=== PATIENT | male | born 1955 | race Caucasian/White ===

== ENCOUNTER 2022-02-09 16:12 | Emergency (ER) | payer OTHER, SELFPAY ==
[2022-02-09 16:27] VITALS: BP 156/69; PULSE 58; RESP 18; TEMP 36.5; O2SAT 99
--- NOTE | 2022-02-09 16:45 | DI.CT_ITS ---
Exam(s) CT CHEST WO EXAM: CT CHEST WO CLINICAL HISTORY: fall, left sided chest pain. TECHNIQUE: Multi planar reconstructions were performed. CONTRAST MATERIAL: None COMPARISON: No exams were available for comparison FINDINGS: CHEST: LUNGS: Hyperinflation. No large bullae. No pneumothorax. Mild increased markings in both lung base s specifically in the posterior basal segments of both lower lobes. There are no associated pleural effusions. MEDIASTINUM: There is no obvious hilar nor mediastinal adenopathy. Visualized thyroid unremarkable.Es ophagus is dilated and thickened distally in this patient appears to have had prior gastric surgery. Endoscopy recommended. CARDIAC: Heart size is normal. There is no pericardial effusion.Ascending thoracic aorta is dilated measuring 4.5 cm. Diameter of the mid aortic arch is 3 cm and the descending thoracic aorta is upper normal diameter. VISUALIZED UPPER ABDOMEN:Cysts in both kidneys. Fat containing left adrenal mass, probably myelolipo ma. This measures 1.5 x 1.5 cm. There is cysts noted in both kidneys, only partially included in th e field of view. OSSEOUS: No fractures. No ominous osseous lesions.Benign-appearing T12 vertebral body hemangioma is noted.. IMPRESSION: 1. No acute pulmonary findings. No pleural effusions. 2. Aneurysmal dilatation of the ascending thoracic aorta. If clinically indicated this could be furt her study with contrast infused CT. 3. Evidence of previous gastric region surgery. Abnormal thickening of the distal esophagus. Recomm end endoscopy. Fat containing 15 x 15 millimeter left adrenal nodule which is probably a benign myelolipoma. There are benign cysts noted in both kidneys. RADIATION DOSE DELIVERED: 581.18mGy.cm Total DLP DATA REPOSITORY: All CT scans at this facility are submitted to the National Radiology Data Registry (NRDR) Dose Index Registry (DIR) with the [employer] ([employer]). RADIATION OPTIMIZATION: All CT scans at this facility use at least one of these dose optimization te chniques: automated exposure control; mA and/or kV adjustment per patient size (includes targeted exa ms where dose is matched to clinical indication); or iterative reconstruction.
--- NOTE | 2022-02-09 16:47 | ED.GENADUL_ITS ---
Discharge Plan Disposition Patient Disposition: HOME Condition: Stable Discharge Details Clinical Impression: Rib contusion Primary Care Provider: Pina Cooper ED Provider: Sandeep Baldwin Home Meds and New Rx's Prescriptions: New gabapentin 300 mg capsule 300 mg PO TID Qty: 30 0RF Discharge Instructions Instructions: Rib Contusion (ED) Additional Instructions: your cat scan did not show any broken bones or collapsed lung follow up with your primary care provider within 1 week if you feel more ill, have new symptoms such as fevers or new pain such as severe abdominal pain return to the emergency department Medical Decision Making 66 yo male with hx of migraines on chronic oxycodone and chronic smoker, comes in with cc of left sided chest/rib pain. He states he was in a brook 2 days ago slipped and landed on his left anterior chest on a rock. Denies loc. He has had pain since so came here. He appears in pain on exam and is holding his left side of his chest. He has no visible or palpable deformities. He has clear lungs, tenderness in the mid clavicular line over 3-7 ribs, no sternal tenderness, no abdomen tenderness, no midline c or l spine tenderness and no signs of trauma to the head. Suspect rib fracture, given degree of pain he is in will obtain ct to evaluate for fractures and ptx. Given lack of pain and tenderness elsewhere do not feel additional imaging indicated at this time pt still with point tenderness over the previously described area, remains stable. He has no acute traumatic findings on ct, does have nonemergent findings that were discussed with him and advised to f/u with pcp for this. Given no rib fracture or ptx do not feel he requires admission, will try gapaentin as he is already on oxycodone. Return precautions given Differential Diagnosis Differential Diagnosis: fracture, contusion, ptx Imaging Data Radiologic Study: Attestation: I personally reviewed and interpreted this imaging study as follows: Imaging: CT Scan Radiologist's impression: IMPRESSION: 1. No traumatic disruption. 2. Degenerative thoracic spine disease. T12 vertebral body hemangioma. 3. Pulmonary emphysema. No acute lung infiltrates. 4. No pleural effusion or pneumothorax. 5. Aneurysmal features of the ascending aorta as described above. No acute changes are suggested without contrast. 6. Moderate size hiatal hernia. Distal esophageal edema at the hernia may represent a component of esophagitis. There is some gaseous distension of the proximal esophagus and an air-fluid level. Previous gastric surgery is evident. 7. Nonspecific gaseous distension of upper abdominal bowel loops. 8. Bilateral renal low-attenuation lesions of uncertain significance. Partially visualized by CT chest. Recommend ultrasound follow-up. 9. Previous upper abdominal anterior hernia repair with mesh. 10. Bilateral adrenal gland fullness. Left lateral adrenal gland nodule measuring 16 x 16 mm with fatty intrinsic attenuation consistent with a benign lesion. Lab Data Lab results reviewed: Yes I reviewed the patient's lab results. HPI General Mode of arrival: ambulatory . Date/Time Provider Initiated Documentation: 02/09/22 16:35 . Limitations to Documentation: no limitations . Information obtained by: patient . History of Present Illness 66 year old M presents to the emergency department with the chief complaint of left sided chest pain s/p fall 2 days ago, described as moderate and severe, Quality is described as sharp, Patient started experiencing this day(s) (2) and it has been constant. No relieving factors improve symptom(s), No exacerbating factors reported . Patient notes no other symptoms.. Related Data Home Medications Medication Instructions Recorded Confirmed gabapentin 300 mg capsule 300 mg PO TID #30 caps 02/09/22 Previous Rx's Medication Instructions Recorded gabapentin 300 mg capsule 300 mg PO TID #30 caps 02/09/22 Allergies Allergy/AdvReac Type Severity Reaction Status Date / Time amitriptyline AdvReac Swelling/Ed Unverified 02/09/22 16:30 bryson Penicillins AdvReac Nausea Unverified 02/09/22 16:30 General Stated Complaint: Chest/Rib MARIA DEL ROSARIO: 4 Review of Systems All systems reviewed & are unremarkable except as noted in HPI and below Constitutional Constitutional: Denies chills, Denies fever(s) and Denies weakness Cardiovascular Cardiovascular: Denies dyspnea Respiratory Respiratory: Denies cough and Denies dyspnea Gastrointestinal Gastrointestinal: Denies abdominal pain, Denies nausea and Denies vomiting Neurologic Neurologic: Denies weakness PFSH All Active Problems (Updated 02/09/22 @ 18:21 by Sandeep Baldwin MD) Rib contusion (Acute) Social History Smoking/Tobacco Use Status: Current every day Tobacco Type: cigarettes Smoking risk assessment performed?: Yes Alcohol Intake: never Drug use: Rarely Substance use type: marijuana Do you feel safe at home: Yes Do you feel safe in your relationship?: Yes Course Vital Signs Vital signs: Vital Signs Temperature 36.5 C 02/09/22 16:27 Pulse 58 L 02/09/22 16:27 Respiratory Rate 18 02/09/22 16:27 Blood Pressure 156/69 H 02/09/22 16:27 Pulse Oximetry 99 02/09/22 16:27 Temperature 36.5 C 02/09/22 16:27 Temperature Source Temporal Artery Scan 02/09/22 16:27 Pulse 58 L 02/09/22 16:27 Respiratory Rate 18 02/09/22 16:27 Respiratory Effort 02/09/22 16:31 Blood Pressure 156/69 H 02/09/22 16:27 Blood Pressure Position Sitting 02/09/22 16:27 Pulse Oximetry 99 02/09/22 16:27 Oxygen Delivery Method Room Air 02/09/22 16:27 Oxygen Flow Rate 0 02/09/22 16:27 Pain Level 9 02/09/22 16:27
[2022-02-09 17:12] LABS: Abs Immature Grans 0.03 10^3/uL (0.0-0.06); Absolute Basophil Count 0.04 10^3/uL (0.0-0.2); Absolute Lymphocyte Count 1.51 10^3/uL (1.2-3.4); Absolute Monocyte Count 0.59 10^3/uL (0.1-0.8); Absolute Neutrophil Count 7.44 10^3/uL (1.2-6.7); Basophils % 0.4; HCT 43.9 % (40.0-50.0); HGB 13.9 g/dL (13.5-17.5); Immature Grans % 0.3; Lymphocytes % 15.7; MCH 26.9 pg (27.0-33.0); MCHC 31.7 % (32.0-36.0); MCV 85 fL (80-95); MPV 10.8 fL (8.0-11.0); Monocytes % 6.1; Neutrophils % 77.5; Platelet Count 314 10^3/uL (130-400); RBC 5.17 10^6/uL (4.36-5.78); RDW-SD 46.5 fL; WBC 9.61 10^3/uL (4.4-10.8)
[2022-02-09] MEDS: HYDROmorphone 2 MG/ML SYR 1 MG IVP (17:20)
[2022-02-09 17:21] LABS: PTT Activated 23.9 sec (21.0-27.5); Prothrombin Time 9.9 sec (9.3-11.0)
[2022-02-09] MEDS: Normal Saline Flush 10 ML SYR IVP (17:27)
[2022-02-09 17:37] LABS: ALT 34 U/L (16-63); AST 33 U/L (15-37); Albumin 4.2 g/dL (3.4-5.0); Alkaline Phosphatase 120 U/L (46-116); Anion Gap 8.6 mmol/L (3-11); BUN 15 mg/dL (7-18); Bilirubin, Total 0.5 mg/dL (0.2-1.0); CO2 29.4 mmol/L (21.0-32.0); Chloride 104 mmol/L (98-107); Estimated GFR 83.52 (mL/min/1.73m2); Glucose 128 mg/dL (74-106); Potassium 4.2 mmol/L (3.5-5.1); Sodium 142 mmol/L (136-145); Total Protein 7.7 g/dL (6.4-8.2)
--- NOTE | 2022-02-09 17:54 | DI.VRAD_ITS ---
PROCEDURE INFORMATION: Exam: CT Chest Without Contrast; Diagnostic Exam date and time: 02/09/2022 5:20 PM Age: 66 years old Clinical indication: Chest wall pain; Patient HX: Lt sided cp S/P fall TECHNIQUE: Imaging protocol: Diagnostic computed tomography of the chest without contrast. 3D rendering (Not supervised by radiologist): MIP and/or 3D reconstructed images were created by the technologist. Radiation optimization: All CT scans at this facility use at least one of these dose optimization techniques: automated exposure control; mA and/or kV adjustment per patient size (includes targeted exams where dose is matched to clinical indication); or iterative reconstruction. COMPARISON: No relevant prior studies available. FINDINGS: Lungs: Moderate to severe emphysematous lung disease and bronchiectasis consistent with COPD. No acute lung consolidation. Pleural spaces: No pleural effusion. No pneumothorax. Heart: Mild cardiac enlargement. No pericardial effusion. No significant coronary artery atherosclerosis. Lymph nodes: Unremarkable. No enlarged lymph nodes. Vasculature: Thoracic aorta with mild ascending segment aneurysm at 4.6 x 4.3 cm. Pulmonary artery has normal configuration without contrast. Diaphragm: Moderate size hiatal hernia. Previous gastric surgery. Distal aspect of the hiatal hernia with mild circumferential edema. Cannot exclude a mild distal esophagitis. Maximal wall thickening of 11 mm. Small bowel loops in the upper abdomen with some air retention and scattered air-fluid levels. Recommend clinical correlation. No radha bowel edema. Liver: Visualized portion of the liver is unremarkable. Spleen: The spleen is normal in size, contour and attenuation. Adrenal glands: Bilateral adrenal gland fullness. Left adrenal gland lateral limb nodule measuring 16 mm with fatty internal characteristics consistent with a benign lesion. Kidneys and ureters: Bilateral kidneys contain low-attenuation foci which are incompletely imaged. These may represent cysts. A follow-up renal ultrasound is recommended. This may be acceptable on a nonemergent basis. Bones/joints: No skeletal disruption evident. Degenerative thoracic spine disease. No rib fractures evident. T12 hemangioma within the vertebral body. Soft tissues: Previous upper abdominal wall hernia repair with mesh. IMPRESSION: 1. No traumatic disruption. 2. Degenerative thoracic spine disease. T12 vertebral body hemangioma. 3. Pulmonary emphysema. No acute lung infiltrates. 4. No pleural effusion or pneumothorax. 5. Aneurysmal features of the ascending aorta as described above. No acute changes are suggested without contrast. 6. Moderate size hiatal hernia. Distal esophageal edema at the hernia may represent a component of esophagitis. There is some gaseous distension of the proximal esophagus and an air-fluid level. Previous gastric surgery is evident. 7. Nonspecific gaseous distension of upper abdominal bowel loops. 8. Bilateral renal low-attenuation lesions of uncertain significance. Partially visualized by CT chest. Recommend ultrasound follow-up. 9. Previous upper abdominal anterior hernia repair with mesh. 10. Bilateral adrenal gland fullness. Left lateral adrenal gland nodule measuring 16 x 16 mm with fatty intrinsic attenuation consistent with a benign lesion. Dictated and Authenticated by: Gabriel Tilley MD. Ordering:CARY Hopkins MD
[2022-02-09 18:09] VITALS: BP 154/65; PULSE 60; TEMP 36.6; O2SAT 96
[2022-02-09 18:28] VITALS: BP 158/76; PULSE 57; RESP 16; TEMP 36.6; O2SAT 97
[2022-02-09] MEDS: Gabapentin 300 MG CAP PO (18:31)
== END 2022-02-09 18:34 | disposition home or self-care (01) ==
PROVIDERS: Emergency Provider Emergency Medicine; PCP Internal Medicine
DX: S20.212A Contusion of left front wall of thorax, initial encounter (principal); W01.0XXA Fall on same level from slipping, tripping and stumbling without subsequent striking against object, initial encounter; F17.210 Nicotine dependence, cigarettes, uncomplicated
CPT/HCPCS: 36415; 71250; 80053; 96374; 99284; 85025; 85610; 85730; 99281; J1170